=== PATIENT | male | born 1995 | race African-American/Black ===

== ENCOUNTER 2018-03-14 18:05 | Emergency (ER) | payer OTHER ==
[~2018-03-14] VITALS: Ht 162.6 cm; Wt 83.9 kg
== END 2018-03-14 20:36 ==
LOC: ED 18:05
DX: R20.2 Paresthesia of skin (principal); R03.1 Nonspecific low blood-pressure reading; V49.40XA Driver injured in collision with unspecified motor vehicles in traffic accident, initial encounter
CPT/HCPCS: 99283